=== PATIENT | male | born 1940 | race American Indian/Alaskan Native ===

== ENCOUNTER 2016-10-21 06:57 | Day surgery (SDC) | payer MEDICARE ==
[2015-04-30 11:08] VITALS: BMI 22.6
[2016-10-21] MEDS ORDERED: Lactated Ringer's 1,000 ML IV ONE ×3 (08:08→11:15)
[2016-10-21] MEDS ORDERED: Propofol 10 mg/ml Inj (20 ML) ONE (09:04)
[2016-10-21] MEDS ORDERED: Midazolam 2 MG/2 ML VIAL ONE (09:05)
[2016-10-21] MEDS ORDERED: Lidocaine 2% Jelly (Uro-Jet) ONE (09:08)
[2016-10-21] MEDS ORDERED: cefTRIAXone IV 1 gm in Dextros 50 ML IVPB ONE (09:08)
[2016-10-21] MEDS ORDERED: Etomidate 20 mg/10ml Inj IV ONE (09:12)
[2016-10-21] MEDS ORDERED: HYDROmorphone 0.5 mg/0.5 ml ISec IVP PRN (09:57)
[2016-10-21 11:42] VITALS: O2SAT 98
[2016-10-21 13:00] VITALS: BP 155/80; PULSE 67; RESP 20; TEMP 97.8
--- NOTE | 2016-11-25 09:28 | OP ---
PROCEDURE DATE: 10/21/2016 PREOPERATIVE DIAGNOSIS: Gross hematuria. POSTOPERATIVE DIAGNOSES: Benign prostatic hyperplasia, prostatic urethral bleeding, gross hematuria, and urethral stricture. PROCEDURE: Cystoscopy, optical internal urethrotomy, and cauterization of bleeding prostate. SURGEON: Stephen Boss MD ANESTHESIA: General. DESCRIPTION OF PROCEDURE: The patient was brought into the operating room, given Ancef 1 g IV piggyback and placed under anesthesia in lithotomy position, prepped and draped in the usual fashion. Introduction of a Storz cystoscope revealed a midurethral stricture. We were easily able to navigate the stricture using a guidewire and confirmed its presence in the bladder using fluoroscopy. We then exchanged the cystoscope for an optical urethrotome and incised the urethra at the 12 o' clock position deeply, so that we can get a good postop result. The extent of the stricture proximally and distally was about 1 cm. We were now able to introduce the scope more proximally. The prostate was very much enlarged with a suggestion of previous resection or surgery. The mucosa had areas of bullous edema as well as hemorrhagic vessels crawling on the surface. The prostate was totally occlusive at least 4 to 5 cm in length. There is also what appears to be an old false passage at the apex of the prostate around 5 o' clock. We were able to negotiate the cystoscope into the bladder, which showed moderate trabeculation, but no areas of active bleeding and there were no tumors or calculi seen. At this point, we exchanged the instruments for resectoscope, and I cauterized a few areas including resecting 1 to 2 areas clean for better hemostasis. After termination of the procedure, there was no significant bleeding noted. We now removed the instruments and advanced a 22-Sinhala Gibson catheter for postoperative drainage. Estimated blood loss was 10 mL. The patient tolerated the procedure well. Stephen Boss MD
== END 2016-10-21 12:20 | disposition home or self-care (01) ==
LOC: C.SDS 06:57
PROVIDERS: ATTEND Urology
DX: N35.9 Urethral stricture, unspecified (principal); R31.0 Gross hematuria; N40.0 Benign prostatic hyperplasia without lower urinary tract symptoms; E11.9 Type 2 diabetes mellitus without complications; I10 Essential (primary) hypertension
CPT/HCPCS: 52214; 52276; 82948; 87086; C1769; J7120